=== PATIENT | female | born 1975 | race Caucasian/White ===

== ENCOUNTER 2021-03-11 15:35 | Emergency (ER) | payer OTHER, MEDICAID, SELFPAY ==
[2021-03-11 15:46] VITALS: BP 107/65; PULSE 80; RESP 16; TEMP 36.1; O2SAT 99
--- NOTE | 2021-03-11 15:52 | ED.SKABFB ---
HPI - Skin/Abscess/Foreign Bdy General Chief complaint: Skin/Abscess/Foreign Body Stated complaint: Rash on Face Time Seen by Provider: 03/11/21 15:53 Source: patient and RN notes reviewed Mode of arrival: ambulatory Limitations: no limitations History of Present Illness HPI narrative: 45-year-old female presents to the [facility] with complaints of a rash on the face since Wednesday. Has been using facial wash that is not new to her. Denies any new creams or ointments lotions detergents. States that she did buy a new facemask but states she washed it. Has been using the same detergent for long period of time. No lip swelling or eye swelling. No shortness of breath. Related Data Home Medications Medication Instructions Recorded Confirmed bupropion HCl mg PO 03/11/21 escitalopram oxalate mg 03/11/21 03/11/21 Allergies Allergy/AdvReac Type Severity Reaction Status Date / Time No Known Allergies Allergy Verified 03/11/21 15:58 Review of Systems Review of Systems: All systems reviewed & are unremarkable except as noted in HPI and below Constitutional: Constitutional: Reports no additional constitutional complaints Eyes: Eyes: Reports no additional eye complaints ENT: Reports system reviewed and no additional complaints, except as documented Cardiovascular: Cardiovascular: Reports no additional cardiovascular complaints Respiratory: Respiratory: Reports no additional respiratory complaints Musculoskeletal: Musculoskeletal: Reports no additional musculoskeletal complaints Integumentary/Breasts: Skin/Breast: Reports as per HPI and Reports rash (Face) Neurologic: Reports system reviewed and no additional complaints, except as documented Psychiatric: Psychiatric: Reports no additional psychiatric complaints Allergic/Immunologic: Allergic/Immunologic: Reports no additional allergic/immunologic complaints [facility] Past Medical History Medical History (Updated 03/11/21 @ 19:05 by Sofía Dumont) No significant medical problems Surgical History Surgical History (Updated 03/11/21 @ 19:05 by Sofía Dumont) No significant past surgical history Social History Social History (Updated 03/11/21 @ 19:05 by Sofía Dumont) Smoking status: Former smoker Smoking end date: 06/28/10 Substance use: never Living arrangements: with family Gender identity (if verbalized by the patient): Female Comments At the time of my signature, I reviewed and agree with the nursing past medical, surgical, social, and family history. There is no relevant family history pertinent to the patient complaint. Exam Const: General: healthy appearing, no acute distress and alert Nutritional Appearance: well nourished Orientation/consciousness: patient oriented x3 Limitations: no limitations HENMT: Head: normal to inspection Ears: external ears normal, TM's normal bilaterally and EAC's normal General nose exam: Normal external nose present Face and sinus: normal facial exam Mouth: Yes Normal oral and palatal mucosa present and Yes moist mucous membranes Throat: posterior oropharynx normal and uvula midline Eyes: Conjunctivae: conjunctivae normal Pupils: Equal, round and reactive pupils present Neck: Neck: normal visual inspection, no lymphadenopathy and no meningeal signs Chest: Chest palpation & inspection: normal inspection of the chest Resp: Effort & Inspection: normal respiratory effort Auscultation: clear to auscultation bilaterally Cardio: Rate: regular rate Rhythm: regular rhythm Back/Spine/Pelvis: Back: no CVA tenderness Skin: Other: Red raised itchy rash without signs of infection Neuro: General: patient oriented x3, moves all extremities, no meningeal signs and no focal motor deficits Speech: normal speech Gait exam (Neuro): Normal gait present Extrem: General: normal to inspection Psych: Appearance: grossly normal and well kempt Mental Status: mental status grossly normal Affect: normal aff
== END 2021-03-11 16:11 | disposition home or self-care (01) ==
PROVIDERS: Emergency Provider Nurse Practitioner
DX: L25.9 Unspecified contact dermatitis, unspecified cause (principal); Z87.891 Personal history of nicotine dependence
CPT/HCPCS: 99213; G0463

== ENCOUNTER 2021-09-04 17:20 | Emergency (ER) | payer OTHER, MEDICAID, SELFPAY ==
[2021-09-04 17:30] VITALS: BP 104/66; PULSE 83; RESP 16; TEMP 37.1; O2SAT 100
--- NOTE | 2021-09-04 17:30 | ED.FEMALEGU ---
HPI - Female Genitourinary General Chief complaint: Urogenital-Female Stated complaint: Yeast Infection Time Seen by Provider: 09/04/21 17:28 Source: patient and RN notes reviewed Mode of arrival: ambulatory Limitations: no limitations History of Present Illness HPI Narrative: 46 y/o female presented for c/o concern for yeast infection. Symptoms of itching, burning with urination, and 'fishy' odor for 1 week. Also endorses for about 5 days boil to the groin, which she gets occasionally in the panty line area. No drainage to the boil, has not applied anything to the site. Tried Epson salt bath. Endorses unprotected sexual activity with new partner about 1 week ago, states the itching started prior, but dysuria started after. Hx uterine ablation, no menstrual cycles. Denies n/v/d/hematuria, frequency, urgency f/c. Related Data Home Medications Medication Instructions Recorded Confirmed bupropion HCl 300 mg PO DAILY 03/11/21 09/04/21 escitalopram oxalate 20 mg PO DAILY 03/11/21 09/04/21 aripiprazole 5 mg PO DAILY 09/04/21 09/04/21 propranolol 10 mg PO DAILY 09/04/21 09/04/21 spironolactone 100 mg PO DAILY 09/04/21 09/04/21 trazodone 100 mg PO DAILY 09/04/21 09/04/21 Allergies Allergy/AdvReac Type Severity Reaction Status Date / Time No Known Allergies Allergy Verified 09/04/21 17:30 Review of Systems Review of Systems: CONSTITUTIONAL: Denies body aches, fever, chills, or sweats. CARDIOVASCULAR: Denies chest pain, palpitations, or edema. RESPIRATORY: Denies cough or dyspnea. GASTROINTESTINAL: Denies abdominal pain, nausea, vomiting, or diarrhea. GENITOURINARY: Reports dysuria, vaginal dc SKIN: Reports boil to groin. MUSCULOSKELETAL: Denies back pain or myalgia. [facility] Past Medical History Medical History No significant medical problems Surgical History Surgical History No significant past surgical history Social History Social History Smoking status: Former smoker Smoking end date: 06/28/10 Substance use: never Gender identity (if verbalized by the patient): Female Comments At time of signature, I have reviewed and agree with nursing past medical, surgical, social and family history unless otherwise noted. Please see nursing chart for further information. There is no relevant family history pertinent to the presenting complaint Exam Narrative: GENERAL: Well-appearing and in no acute distress. HEAD: Normocephalic EYES: EOMI. . ENT: Mucous membranes pink and moist. NECK: Normal AROM. Supple. CHEST: No respiratory distress. Clear to auscultation. HEART: Regular rate and rhythm. ABDOMEN: Soft, nontender, nondistended, normal active bowel sounds. No CVA tenderness : Vagina: normal vaginal introitus, pink with minimal white/yellow discharge, mild odor, no bleeding, foreign body, laceration or lesions. No swelling. Nontender. Cervix: normal appearance of the cervix, closed Other: Chaperoned by Tosha ONEILL MUSCULOSKELETAL: No bony tenderness. SKIN: Warm, dry, scarring to onel area c/w previous abscess formation, no apparent acute abscess or areas of firmness, induration, fluctuance, or warmth NEURO: Alert and oriented x3. Gait steady. PSYCH: Normal affect. Course Course Emergency Course: Patient is aware of diagnosis, understands and agrees to treatment plan. Anticipatory guidance given. Patient agrees to follow-up as directed and is aware of reasons to seek care at the emergency department. Portions of this record may have been created with voice recognition software Level of Care: Express Care Visit Vital Signs Vital signs: Vital Signs Temperature 98.8 F 09/04/21 17:30 Pulse Rate 83 09/04/21 17:30 Respiratory Rate 16 09/04/21 17:30 Blood Pressure 104/66 09/04/21 17:30 Pulse Oximetry 100 09/04/21 17:30
== END 2021-09-04 18:08 | disposition home or self-care (01) ==
PROVIDERS: Emergency Provider Nurse Practitioner Family; PCP Internal Medicine
DX: N76.0 Acute vaginitis (principal); Z87.891 Personal history of nicotine dependence; F41.9 Anxiety disorder, unspecified
CPT/HCPCS: 81003; 87070; 87086; 87491; 87591; 87661; 99214; G0463

== ENCOUNTER 2023-03-08 06:34 | Day surgery (SDC) | payer OTHER, SELFPAY ==
[2023-03-04 14:27] VITALS: BMI 23.5
[2023-03-05 09:50] VITALS: BMI 23.4
[2023-03-08 09:34] VITALS: BP 117/90; PULSE 90; RESP 14; TEMP 37.3; O2SAT 99
--- NOTE | 2023-03-08 09:35 | WPDANESEPPF ---
Anes - Initial Pre Proc Eval Procedure: Operation Date: 03/08/23 10:30 Proposed Procedures p Diagnostic Colonoscopy - Mendez Hughes MD Date/Time: 03/08/23 09:35 Surgeon: Mendez Hughes MD Pre Op Diagnosis: Family History of Colon Cancer Patient Data Age: 47 Gender: F Height: 1.65 m Weight: 64.2 kg Last Vital Signs Temp 37.3 C 03/08/23 09:34 Pulse 90 03/08/23 09:34 Resp 14 03/08/23 09:34 BP 117/90 03/08/23 09:34 Pulse Ox 99 03/08/23 09:34 O2 Del Method Room Air 03/08/23 09:34 Allergies Allergy/AdvReac Type Severity Reaction Status Date / Time No Known Allergies Allergy Verified 03/08/23 09:22 Home Medications Medication Instructions Recorded Confirmed Type bupropion HCl 300 mg 24 hr tablet, 450 mg PO DAILY 03/11/21 03/08/23 History extended release escitalopram oxalate 20 mg tablet 20 mg PO DAILY 03/11/21 03/08/23 History spironolactone 100 mg tablet 100 mg PO DAILY 09/04/21 03/08/23 History trazodone 100 mg tablet 100 mg PO DAILY 09/04/21 03/08/23 History sennosides 8.6 mg-docusate sodium 1 tab-cap PO DAILY 03/05/23 03/08/23 History 50 mg tablet (Stimulant Laxative Plus) topiramate 25 mg tablet 25 mg PO PRN anxiety 03/05/23 03/08/23 History propranolol 20 mg tablet 20 mg PO BID PRN Anxiety 03/08/23 03/08/23 History Patient hx anesthesia problems: none Family hx anesthesia problems: none Results Review: All pre-operative results and documents have been reviewed as part of the pre-operative evaluation. [facility] Past Medical History Medical History Chronic constipation Family hx of colon cancer requiring screening colonoscopy Gas bloat syndrome No significant medical problems Primary osteoarthritis of right knee Surgical History Surgical History (Updated 03/08/23 @ 09:36 by Tej Kemp MD) History of 2 sections 01/10/05 01/20/10 History of endometrial ablation Family History Family History Grandparent Colon cancer Grandparent Heart attack Social History Social History Smoking status: Current some day smoker Tobacco type: cigarettes Smoking end date: 06/28/10 Alcohol intake: never Alcohol use details: quit in 2018 Substance use: never Substance use type: does not use Living arrangements: with family Gender identity (if verbalized by the patient): Female Spiritual care concerns: No Anes - Eval Final PreProcedure Day of Procedure 03/08/23 09:35 Patient weight: normal Heart: regular rate and rhythm Lungs: clear to auscultation Airway: Mallampati scale class 1 Neurological: alert and oriented Last oral intake: >/= 8 hours ASA classification: II Emergent: no Anesthetic plan: proceed Anesthesia type and monitoring: general GIVS and standard monitoring Results Review: All pre-operative results and documents have been reviewed as part of the pre-operative evaluation. Informed Consent: The patient's anesthetic plan and its attendant risks and benefits were discussed with the patient/family/POA. Questions were solicited and answers provided to the satisfaction of the patient/family/POA.
[2023-03-08] MEDS: LACTATED RINGERS 1,000 ML 150 ML IV CONT (09:36)
--- NOTE | 2023-03-08 09:39 | WPDHPUPDATE1 ---
History and Physical Update Update Date/Time: 03/08/23 09:39 History and Physical has been reviewed, including an updated exam of the patient. There are NO changes in the patient's condition. Risks, benefits, and alternatives have been discussed and questions answered. Patient agrees to proceed with procedure.
[2023-03-08 10:02] VITALS: BP 89/59; PULSE 70; RESP 16; O2SAT 99
[2023-03-08 10:12] VITALS: BP 96/77; PULSE 63; RESP 14; O2SAT 99
--- NOTE | 2023-03-08 10:20 | WPDANESPN ---
Anes - Prog Note Post-Op Date/Time: 03/08/23 10:20 Cardiovascular status: normal Respiratory status: normal Airway patency: baseline Mental status: baseline Post-Op hydration status: normal Vital Signs: Last Vital Signs Temp 37.3 C 03/08/23 09:34 Pulse 63 03/08/23 10:12 Resp 14 03/08/23 10:12 BP 96/77 L 03/08/23 10:12 Pulse Ox 99 03/08/23 10:12 O2 Del Method Room Air 03/08/23 10:12 Pain Score (VAS): 0/10 I/O: Intake & Output 03/07/23 03/08/23 03/08/23 23:59 07:59 15:59 Intake Total 500 Balance 500 Patient Feedback: Patient satisfied with anesthetic care.
[2023-03-08 10:22] VITALS: BP 97/71; PULSE 63; RESP 16; O2SAT 96
[2023-03-08 10:28] VITALS: BP 93/71; PULSE 61; RESP 16; O2SAT 96
[2023-03-08 10:32] VITALS: BP 101/71; PULSE 60; RESP 15; O2SAT 99
== END 2023-03-08 10:44 | disposition home or self-care (01) ==
PROVIDERS: PCP Internal Medicine; Visit Provider Internal Medicine Gastroenterology
PROC: 0DJD8ZZ Inspection of Lower Intestinal Tract, Via Natural or Artificial Opening Endoscopic (ICD-10-PCS; CPT 45378; principal; 2023-03-08 10:30)
DX: Z12.11 Encounter for screening for malignant neoplasm of colon (principal)
CPT/HCPCS: 45378

== ENCOUNTER 2023-03-19 15:15 | Outpatient (CLI) | payer OTHER, SELFPAY ==
--- NOTE | ~2023-03-19 | MM_ITS ---
EXAMINATION: MM screening isaiah BI w keira HISTORY: Screening TECHNIQUE: Craniocaudal and mediolateral oblique 3-D tomosynthesis images were obtained and synthetic 2-D images were generated. CAD analysis was submitted and interpreted. COMPARISON: Comparison to multiple prior studies sequentially, with oldest reviewed study dated 03/14. BREAST PARENCHYMAL COMPOSITION: There are scattered areas of fibroglandular density. FINDINGS: There is no evidence of suspicious mass, calcification, or architectural distortion to sugg est malignancy in either breast. There has been no suspicious interval change. IMPRESSION: 1. No mammographic evidence of malignancy. 2. Recommend routine screening mammography in one year. BI-RADS Category 1: Negative Reviewed, dictated and finalized at location A.
== END 2023-03-19 15:16 | disposition home or self-care (01) ==
LOC: ANHIMG 15:17
PROVIDERS: PCP Internal Medicine; Visit Provider Internal Medicine
DX: Z12.31 Encounter for screening mammogram for malignant neoplasm of breast (principal)
CPT/HCPCS: 77063; 77067

== ENCOUNTER 2024-07-15 08:37 | Emergency (ER) | payer BC, SELFPAY ==
[2024-07-15 08:47] VITALS: BP 122/70; PULSE 90; RESP 18; TEMP 36.4; O2SAT 100
--- NOTE | 2024-07-15 08:59 | ED_ITS ---
HPI - URI/Sore Throat General Chief Complaint: Upper Respiratory Infection Stated Complaint: Sore Throat/Ears Irritation Time Seen by Provider: 07/15/24 08:55 Source: patient Mode of arrival: ambulatory Limitations: no limitations History of Present Illness HPI Narrative: Madelin is in a 49-year-old female patient presenting to the clinic today with complaints of sore throat and right ear pain x1 day. Denies any fevers, chills, or body aches. States she had a sore throat a couple weeks ago but it went away on its own. Just wants to make sure she is not contagious that she is going to be taking care of a today. Denies any URI symptoms. MD elicited complaint: sore throat and nasal congestion Related Data Home Medications ?Medication ?Instructions ?Recorded ?Confirmed ?Last Taken ?Type bupropion HCl 300 mg 24 hr tablet, 450 mg PO DAILY 03/11/21 03/08/23 03/07/23 History extended release escitalopram oxalate 20 mg tablet 20 mg PO DAILY 03/11/21 03/08/23 03/07/23 History spironolactone 100 mg tablet 100 mg PO DAILY 09/04/21 03/08/23 03/07/23 History trazodone 100 mg tablet 100 mg PO DAILY 09/04/21 03/08/23 Unknown History sennosides 8.6 mg-docusate sodium 1 tab-cap PO DAILY 03/05/23 03/08/23 Unknown History 50 mg tablet (Stimulant Laxative Plus) topiramate 25 mg tablet 25 mg PO PRN anxiety 03/05/23 03/08/23 Unknown History propranolol 20 mg tablet 20 mg PO BID PRN Anxiety 03/08/23 03/08/23 03/08/23 History atomoxetine 40 mg capsule mg PO 07/15/24 Unknown History Allergies Allergy/AdvReac Type Severity Reaction Status Date / Time No Known Allergies Allergy Verified 07/15/24 08:51 Review of Systems Review of Systems: Pertinent positives per HPI. Patient denies any fever, chills, rash, headache, visual changes, dizziness, cough, shortness of breath, chest pain, palpitations, nausea, vomiting, diarrhea, constipation, abdominal pain, or any urinary issues. [facility] Past Medical History Medical History (Updated 07/15/24 @ 09:07 by Rony Aponte APRN) Gas bloat syndrome Chronic constipation Family hx of colon cancer requiring screening colonoscopy Primary osteoarthritis of right knee No significant medical problems Surgical History Surgical History History of endometrial ablation History of 2 sections 01/10/05 01/20/10 Family History Family History Grandparent Colon cancer Grandparent Heart attack Social History Social History Smoking status: Current some day smoker Tobacco type: cigarettes Smoking end date: 06/28/10 Alcohol intake: never Alcohol use details: quit in 2018 Substance use: never Substance use type: does not use Living arrangements: with family Gender identity (if verbalized by the patient): Female Spiritual care concerns: No Comments At the time of my signature, I reviewed and agree with the nursing past medical, surgical, social, and family history. There is no relevant family history pertinent to the patient complaint. Exam Narrative: General: Well-developed, well nourished, in no apparent distress Head: Normocephalic, atraumatic Eyes: Pupils equally round and reactive to light bilaterally, EOM intact, sclera and conjunctive clear, no discharge, lids normal Ears: Left TMs intact and clear, right TM intact, bulging, ear canals clear, no drainage, grossly hearing normal. Nose: Nares patent, no discharge, no inflammation, no sinus tenderness. Mouth: Oral pharynx red without lesions or masses, good dentition, MMM. Neck: Supple, trachea midline, no enlargement of anterior or posterior cervical nodes, no thyroid masses or goiter palpable. Cardio: Regular rate and rhythm, s1 and s2 normal, no murmur appreciated. Resp: Clear to auscultation bilaterally, no rhonchi, rales, wheezing or rubs Course Course Emergency Course: Portions of this record may have been created with voice recognition software. Level of Care: Express Care Visit Vital Signs Vital signs: Vital Signs Temperature 36.4 C L 07/15/24 08:47 Pulse Rate 90 07/15/24 08:47 Respiratory Rate 18 07/15/24 08:47 Blood Pressure 122/70 07/15/24 08:47 Pulse Oximetry 100 07/15/24 08:47 Oxygen Delivery Room Air 07/15/24 08:47 Temperature 36.4 C L 07/15/24 08:47 Pulse Rate 90 07/15/24 08:47 Respiratory Rate 18 07/15/24 08:47 Blood Pressure 122/70 07/15/24 08:47 Pulse Oximetry 100 07/15/24 08:47 Oxygen Delivery Room Air 07/15/24 08:47 Vital signs reviewed MDM - URI/Sore Throat MDM Narrative Medical decision making narrative: At the time of visit patient is resting comfortably on the exam table. Patient appears to be nontoxic. Labs: Strep test was negative in the clinic today. We will send strep for culture. Plan: I suspect patient has right eustachian tube dysfunction/pharyngitis. Prescription for prednisone was sent to the pharmacy. Supportive measures were discussed with the patient and they voiced understanding discharge instructions and agrees to treatment plan. Return precautions reviewed Differential Diagnosis Differential diagnosis: Likely upper respiratory infection, otitis media, sinusitis, viral infection, bronchitis, influenza, pharyngitis and other (COVID) Discharge Plan Discharge Clinical Impression: ETD (eustachian tube dysfunction) Qualifiers: Laterality: right Qualified Code(s): H69.91 - Unspecified Eustachian tube disorder, right ear Pharyngitis, acute Qualifiers: Pharyngitis/tonsillitis etiology: unspecified etiology Qualified Code(s): J02.9 - Acute pharyngitis, unspecified Patient Disposition: Home, Self-Care Condition: Stable Instructions: Antibiotic Form, Pharyngitis (ED), Earache (ED) Additional Instructions: Strep test was negative in the clinic today. We will send strep for culture if this comes back positive we will contact you in place you on antibiotics at that time. Take prescription medications only as prescribed-prednisone Increase fluids and stay well hydrated Tylenol/motrin for pain/fever Flonase and OTC antihistamines as directed Vicks vapor rub to open sinuses Sinus rinses for congestion Cepacol spray, cough drops, throat lozenges, warm tea with honey/lemon, gargle salt water to soothe throat BRAT diet for diarrhea Clear liquids x 24 hours then advance as tolerated for nausea/vomiting Go to the ED if you develop a worsening in your condition- high fever not controlled by Tylenol or Motrin, dehydration, weakness, lethargy, shortness of breath, or chest pain. Follow up with your PCP in 3-5 days if symptoms persist. Patient Language: Luxembourgish Prescriptions: New prednisone 20 mg tablet 40 mg PO DAILY 5 Days Qty: 10 0RF No Action escitalopram oxalate 20 mg tablet 20 mg PO DAILY bupropion HCl 300 mg tablet extended release 24 hr 450 mg PO DAILY atomoxetine 40 mg capsule PO spironolactone 100 mg tablet 100 mg PO DAILY trazodone 100 mg tablet 100 mg PO DAILY sennosides-docusate sodium [Stimulant Laxative Plus] 8.6-50 mg tablet 1 tab-cap PO DAILY topiramate 25 mg tablet 25 mg PO PRN propranolol 20 mg tablet 20 mg PO BID PRN (Reason: Anxiety) Follow-up/Referrals: Jack,MD Salas ([place]) [Primary Care Provider] - Time of Disposition: 09:07 Quality NIHSS Nursing Documentation ED NIHSS nursing documentation: reviewed/agree
[2024-07-15 09:47] LABS: EDSTREPNEGPOS1 Negative (Negative)
[2024-07-15 10:12] LABS: EDSTREPNEGPOS1 Negative (Negative)
== END 2024-07-15 09:25 | disposition home or self-care (01) ==
PROVIDERS: Emergency Provider Nurse Practitioner Family; PCP Internal Medicine
DX: H69.91 Unspecified Eustachian tube disorder, right ear (principal); J02.9 Acute pharyngitis, unspecified; Z87.891 Personal history of nicotine dependence; M17.11 Unilateral primary osteoarthritis, right knee
CPT/HCPCS: 87081; 87880; 99213; G0463

== ENCOUNTER 2025-02-12 10:53 | Emergency (ER) | payer BC, SELFPAY ==
[2025-02-12 11:02] VITALS: BP 108/65; PULSE 80; RESP 20; TEMP 37.1; O2SAT 99
--- NOTE | 2025-02-12 11:08 | ED.GENADULT ---
HPI - General Adult General Chief complaint: Unspecified Stated complaint: fatigue Time Seen by Provider: 02/12/25 11:08 Source: patient Mode of arrival: ambulatory Limitations: no limitations History of Present Illness HPI narrative: 49 y/o female presented for c/o fatigue and aches x2 weeks, and started with chills last night and this morning. Pt was seen by psychiatrist 3 days ago, who adjusted down the new medication [place] due to headaches.Denies changes in body aches. Denies cough, chest pain, palpitations, dizziness, nasal congestion, n/v/d/f. Related Data Home Medications ?Medication ?Instructions ?Recorded ?Confirmed ?Last Taken ?Type bupropion HCl 300 mg 24 hr tablet, 450 mg PO DAILY 03/11/21 03/08/23 03/07/23 History extended release trazodone 100 mg tablet 100 mg PO DAILY 09/04/21 03/08/23 Unknown History propranolol 20 mg tablet 20 mg PO BID PRN Anxiety 03/08/23 03/08/23 03/08/23 History atomoxetine 40 mg capsule mg PO 07/15/24 Unknown History citalopram 20 mg tablet mg 02/12/25 Unknown History lithium carbonate 300 mg mg PO 02/12/25 Unknown History tablet,extended release Allergies Allergy/AdvReac Type Severity Reaction Status Date / Time No Known Allergies Allergy Verified 02/12/25 11:12 Review of Systems Review of Systems: CONSTITUTIONAL: reports body aches, chills, fatigue EYES: Denies visual changes, redness, or discharge. ENT: Denies rhinorrhea, congestion, sore throat, or otalgia. CARDIOVASCULAR: Denies chest pain, palpitations, or edema. RESPIRATORY: Denies cough or dyspnea. GASTROINTESTINAL: Denies abdominal pain, nausea, vomiting, or diarrhea. GENITOURINARY: Denies dysuria or hematuria. SKIN: Denies rash, itching, or wounds. MUSCULOSKELETAL: Denies back pain, joint pain NEUROLOGIC: Denies headache, numbness, tingling, or weakness. PSYCH: Denies depression or anxiety. All systems reviewed & are unremarkable except as noted in HPI and below PMFSH Past Medical History Medical History (Updated 02/12/25 @ 11:30 by Carlota Briones APRN) Gas bloat syndrome Chronic constipation Family hx of colon cancer requiring screening colonoscopy Primary osteoarthritis of right knee No significant medical problems Surgical History Surgical History History of endometrial ablation History of 2 sections 01/10/05 01/20/10 Family History Family History Grandparent Colon cancer Grandparent Heart attack Social History Social History Smoking status: Current some day smoker Tobacco type: cigarettes Smoking end date: 06/28/10 Alcohol intake: never Alcohol use details: quit in 2018 Substance use: never Substance use type: does not use Living arrangements: with family Gender identity (if verbalized by the patient): Female Spiritual care concerns: No Comments At time of signature, I have reviewed and agree with nursing past medical, surgical, social and family history unless otherwise noted. Please see nursing chart for further information. There is no relevant family history pertinent to the presenting complaint Exam Narrative: GENERAL: Well-appearing EYES: EOMI. No redness or drainage. Conjunctivae normal. ENT: Mucous membranes pink and moist. No rhinorrhea. TMs normal bilaterally. Throat normal. Uvula midline. NECK: Normal AROM. Supple. CHEST: No respiratory distress. Clear to auscultation. HEART: Regular rate and rhythm. No murmur appreciated. Normal peripheral pulses. ABDOMEN: Soft, nontender, nondistended, normal active bowel sounds. SKIN: Warm, dry, no rash. Capillary refill normal. Normal skin turgor. NEURO: No focal deficits. Alert and oriented x3. Gait steady. PSYCH: Normal affect. No signs of depression or anxiety. Course Course Emergency Course: Patient is aware of diagnosis, understands and agrees to treatment plan. Anticipatory guidance given. Patient agrees to follow-up as directed and is aware of reasons to seek care at the emergency department. Portions of this record may have been created with voice recognition software Level of Care: Express Care Visit Vital Signs Vital signs: Vital Signs Temperature 98.7 F 02/12/25 11:02 Pulse Rate 80 02/12/25 11:02 Respiratory Rate 20 02/12/25 11:02 Blood Pressure 108/65 02/12/25 11:02 Pulse Oximetry 99 02/12/25 11:02 Oxygen Delivery Room Air 02/12/25 11:02 Temperature 98.7 F 02/12/25 11:02 Pulse Rate 80 02/12/25 11:02 Respiratory Rate 20 02/12/25 11:02 Blood Pressure 108/65 02/12/25 11:02 Pulse Oximetry 99 02/12/25 11:02 Oxygen Delivery Room Air 02/12/25 11:02 Medical Decision Making MDM Narrative Medical decision making narrative: Discussed physical exam findings and neg covid. Discussed at length possible etiologies of fatigue symptoms. Offered ER transfer, shared decision making pt declines at this time; Pt is scheduled for labs today, and will f/u with pcp. Advised supportive measures and signs/symptoms to go to the ER. Pt is appropriate for outpt treatment and f/u. Differential Diagnosis Differential Diagnosis: electrolyte imbalance, viral syndrome, dehydration, medication side effect, cardiac arrhythmia Vital Signs Vital Signs: Vital Signs Temperature 98.7 F 02/12/25 11:02 Pulse Rate 80 02/12/25 11:02 Respiratory Rate 20 02/12/25 11:02 Blood Pressure 108/65 02/12/25 11:02 Pulse Oximetry 99 02/12/25 11:02 Oxygen Delivery Room Air 02/12/25 11:02 Temperature 98.7 F 02/12/25 11:02 Pulse Rate 80 02/12/25 11:02 Respiratory Rate 20 02/12/25 11:02 Blood Pressure 108/65 02/12/25 11:02 Pulse Oximetry 99 02/12/25 11:02 Oxygen Delivery Room Air 02/12/25 11:02 reviewed Lab Data Labs: Lab Results 02/12/25 Range/Units 11:16 POC SARS CoV-2 Ag Negative (Negative) Discharge Plan Discharge Clinical Impression: Fatigue Patient Disposition: Home Condition: Stable Instructions: Fatigue (ED) Additional Instructions: Your rapid covid test was negative today. It may be too early to detect the virus, therefore we recommend retesting at home in 1-2 days Continue to follow general precautions: frequent handwashing, wear a mask, isolate/social distance, and avoid crowds if you have a fever. You must be fever free for 24 hours without the use of fever reducing medication (Tylenol/ibuprofen) before returning to work/crowds. We discussed there are many possibilities that can cause your symptoms. You will need to go to the ER for any worsening symptoms or concerns. Change positions slowly Sit down immediately if you feel dizzy or lightheaded Increase water intake, stay hydrated Continue with planned labwork today Please notify your pcp of the symptoms and schedule a follow up appointment. Watch for worsening symptoms (headache, vision changes, dizziness that does not go away, chest pain, heart racing, sweating) Go to the ER for these symptoms or any other concerns. Patient Language: Faro[place] Prescriptions: No Action bupropion HCl 300 mg tablet extended release 24 hr 450 mg PO DAILY atomoxetine 40 mg capsule PO lithium carbonate 300 mg tablet extended release PO citalopram 20 mg tablet trazodone 100 mg tablet 100 mg PO DAILY propranolol 20 mg tablet 20 mg PO BID PRN (Reason: Anxiety) Follow-up/Referrals: Jack,MD Salas ([place]) [Primary Care Provider] - Stand Alone Forms: Work/School Release IP Time of Disposition: 11:39
[2025-02-12 11:35] LABS: EDCOVIDSCREEN Negative (Negative)
== END 2025-02-12 11:44 | disposition home or self-care (01) ==
PROVIDERS: Emergency Provider Nurse Practitioner Family; PCP Internal Medicine
DX: R68.83 Chills (without fever) (principal); R53.83 Other fatigue; Z72.0 Tobacco use; Z20.822 Contact with and (suspected) exposure to COVID-19
CPT/HCPCS: 87426; 99212; G0463